=== PATIENT | female | born 1930 | race Caucasian/White ===

== ENCOUNTER 2021-01-01 16:43 | Emergency (ER) | payer OTHER ==
[~2021-01-01] VITALS: Ht 160 cm; Wt 59.0 kg
[2021-01-01 17:05] VITALS: BP_SYST 160
--- NOTE | 2021-01-01 17:05 | NUR ---
PT TO BED 6 FOR EVALUATION.
[2021-01-01] MEDS ORDERED: DONE10TA44 PO (17:15)
[2021-01-01] MEDS ORDERED: LIP40 PO (17:15)
[2021-01-01] MEDS ORDERED: LEVO100T9 PO (17:15)
--- NOTE | 2021-01-01 17:57 | NUR ---
# 20 gauge angiocath placed to rac. Use of asceptic technique. Opsite placed over site. Blood return noted. Blood for lab drawn from site. Flushed with 10 cc of normal saline. No evidence of infiltration noted. Patient tolerated well.
--- NOTE | 2021-01-01 17:57 | NUR ---
ER at bedside examining patient.
[2021-01-01] MEDS ORDERED: NACL 0.9% 1,000 ML IV ONE (18:00)
[2021-01-01] MEDS ORDERED: MORPHINE 2 MG/ML INJ. SYRINGE IVP ONE ×2 (18:00→22:45)
[2021-01-01] MEDS ORDERED: ONDANSETRON HCL 4 MG/2 ML VIAL IVP ONE (18:00)
--- NOTE | 2021-01-01 18:11 | NUR ---
Belongings list complete.
[2021-01-01 18:37] LABS: BASOPHILS % (AUTO) 0.5 % (0.0-2.0); EOSINOPHILS # (AUTO) 0.1 K/uL (0.0-0.4); EOSINOPHILS % (AUTO) 1.5 % (0.0-4.0); HEMATOCRIT 31.1 % (36-48); HEMOGLOBIN 10.4 g/dL (12.0-16.0); LYMPHOCYTES # (AUTO) 0.6 K/uL (1.0-5.5); LYMPHOCYTES % (AUTO) 6.7 % (20.5-51.5); MEAN CORPUSCULAR HEMOGLOBIN 30 pg (27-31); MEAN CORPUSCULAR HGB CONC 33 % (32-36); MEAN CORPUSCULAR VOLUME 90 fL (79.0-98.0); MONOCYTES # (AUTO) 0.4 K/uL (0.0-1.0); MONOCYTES % (AUTO) 5.1 % (1.7-9.3); NEUTROPHILS # (AUTO) 7.2 K/uL (1.8-7.7); NEUTROPHILS % (AUTO) 86.2 % (40.0-70.0); PLATELET COUNT (AUTO) 196 K/uL (130-430); RED BLOOD CELL COUNT(AUTO) 3.47 MIL/uL (4.2-6.2); RED CELL DISTRIBUTION WIDTH 14.5 % (9.0-15.0); WHITE BLOOD COUNT (AUTO) 8.4 K/uL (4.8-10.8)
[2021-01-01 18:38] LABS: ANION GAP 5 (5-15); CHLORIDE 103 mmol/L (98-107); GLUCOSE 190 mg/dL (70-99); POTASSIUM 4.3 mmol/L (3.5-5.1); SODIUM SERUM 135 mmol/L (136-145); UREA NITROGEN, BLOOD 21 mg/dL (8-21)
--- NOTE | 2021-01-01 18:38 | NUR ---
IV morphine and zofran given per md order.
--- NOTE | 2021-01-01 18:38 | NUR ---
# 14 FR Rivera catheter with use of sterile technique. Immediate return of 200 cc clear yellow urine noted. Bedside drainage bag placed below level of bladder. Urine sample collected and sent to lab. Pt tolerated procedure . Patient arrived with rivera in place, changed due to standard of practice prior to admission. Patient unable to toilet self.
[2021-01-01 18:44] LABS: ALANINE AMINOTRANSFERASE 35 U/L (12-78); ALBUMIN 2.3 g/dL (3.4-4.8); ASPARTATE AMINOTRANSFERASE 32 U/L (10-37); TOTAL BILIRUBIN 0.2 mg/dL (0.0-1.0)
[2021-01-01 19:02] LABS: INR 1.1 (0.8-1.2); PROTHROMBIN TIME 11.6 SECS (9.5-12.5)
--- NOTE | 2021-01-01 19:14 | NUR ---
Report given to Niya PETERS.
[2021-01-01] MEDS ORDERED: MONT10TA33 PO (19:36)
[2021-01-01] MEDS ORDERED: FAMO40TA7 PO (19:36)
[2021-01-01] MEDS ORDERED: D-ME120S20 PO (19:36)
[2021-01-01] MEDS ORDERED: LOSA25TA18 PO (19:36)
[2021-01-01] MEDS ORDERED: MIRT-91 PO (19:36)
[2021-01-01] MEDS ORDERED: MAGN200T9 PO (19:36)
[2021-01-01] MEDS ORDERED: FERR-69 PO (19:36)
[2021-01-01] MEDS ORDERED: ENAL5TAB21 PO (19:36)
[2021-01-01] MEDS ORDERED: LACT10SO6 PO (19:36)
[2021-01-01] MEDS ORDERED: SERT-436 PO (19:36)
[2021-01-01] MEDS ORDERED: MEMA10TA56 PO (19:36)
--- NOTE | 2021-01-01 19:36 | NUR ---
Medication reconciliation completed with information provided by patient. Any prior medication reconciliation on file was reviewed and corrected.
--- NOTE | 2021-01-01 19:37 | NUR ---
Assumed total care of patient. Patient is [facility] 14 resting flat [facility]. Patient VSS, breathing even and unlabored, no signs of acute distress noted. Patient on lime trimmer, and placed on 2L nasal cannula. Patient reports 10 out of 10 pain when moving left leg. Patient IV site patent and no signs of infiltration. Daughter at bedside. Will continue to monitor.
--- NOTE | 2021-01-01 19:49 | NUR ---
Last time patient ate was at 1230 on 01/01/21.
--- NOTE | 2021-01-01 19:52 | NUR ---
End of life care decisions discussed with patient and daughter by Dr. Pritchett. Opportunity for questions and concerns addressed. Patient's code status is DNR paperwork completed and placed in chart.
--- NOTE | 2021-01-01 20:30 | NUR ---
Patient moved to bed 3. Placed on monitor.
--- NOTE | 2021-01-01 21:52 | NUR ---
Transfer consent form signed by MD and patients daughter and placed in chart. Awaiting to hear from [employer] to obtain information on transfer and ETA.
--- NOTE | 2021-01-01 21:53 | NUR ---
Patient resting quietly. No acute distress noted. Vital signs within normal range. Daughter at bedside.
--- NOTE | 2021-01-01 22:19 | NUR ---
Report given to LORRAINE Ricardo at [facility] prior to transfer. Patient will be going to room 1014N
--- NOTE | 2021-01-01 22:25 | NUR ---
Patient to be transferred to [facility]. Is being transferred due to higher level of care. Receiving facility has accepting physician and available space. ER physician has signed transfer form. Patient or responsible constitution party has agreed to transfer and signed form. Patient belongings inventoried and will be sent with patient. Copy of nursing notes, lab reports, EKG, Physicians Orders and X-rays to be sent with patient. Report called to LORRAINE BAILEY at receiving facility. Receiving physician is DR. MACIEL. [facility] has been called for transfer. ETA is 2300.
--- NOTE | 2021-01-01 22:32 | NUR ---
Patient complaining of pain located at left hip, rated 8/10. MD aware. Orders received.
--- NOTE | 2021-01-01 22:49 | NUR ---
Patient medicated per MD orders. Patient tolerated well.
--- NOTE | 2021-01-01 23:00 | NUR ---
Patient discontinued her own IV. Bleeding controlled at site. No signs of infiltration or infection.
--- NOTE | 2021-01-01 23:05 | NUR ---
# 20 gauge angiocath placed to left wrist. Use of asceptic technique. Opsite placed over site. Blood return noted. Flushed with 10 cc of normal saline. No evidence of infiltration noted. Patient tolerated well.
--- NOTE | 2021-01-01 23:10 | NUR ---
Lerma catheter bag emptied. Total urine output 500mL of clear yellow urine.
--- NOTE | 2021-01-01 23:38 | NUR ---
Report given to EMS BLS crew prior to transport.
[2021-01-01 23:39] VITALS: BP_SYST 163
== END 2021-01-01 23:38 | disposition short-term general hospital (02) ==
LOC: SED 16:43
DX: S72.002A Fracture of unspecified part of neck of left femur, initial encounter for closed fracture (principal); Z79.899 Other long term (current) drug therapy; Z20.822 Contact with and (suspected) exposure to COVID-19; W18.39XA Other fall on same level, initial encounter; Y93.89 Activity, other specified; Y92.89 Other specified places as the place of occurrence of the external cause; Y99.8 Other external cause status
CPT/HCPCS: 36415; 71045; 72170; 73502; 80053; 85025; 85610; 85730; 86886; 86900; 86901; 87081; 87426; 93005; 96361; 96374; 96375; 96376; 99285; J2270; J2405; J7030